=== PATIENT | female | born 1975 | race Caucasian/White ===

== ENCOUNTER 2016-09-03 13:28 | Emergency (ER) | payer SELFPAY ==
--- NOTE | 2016-09-05 14:27 | ER ---
ADMIT: 09/03/2016 RM/LOC: ER [facility] MR#: [id number] [facility] [address] [place] [id number] JOANN JEFFERSON [address] [place] [address] Emergency Room Report SEX: F AGE: 40 : 1975 DATE: 09/03/2016 Joann is a 40-year-old, cab-[id number]-upvtyoqt lady, who presents to the emergency room after being seen at [facility] for cough and found to have an elevated D-dimer. Joann's daughter is interpreting for her and states that Joann has had this horrible cough and dyspnea for the past year. She has been worked up by multiple doctors and found to have COPD. In May, she was found to have pneumonia and treated for that. Then, recently, she was found to have influenza. She reports a productive cough, where she is coughing up blood. She does report fever, chills, and body aches. She is currently rating her right and left chest pain at 8/10. She has not taken any ibuprofen or Tylenol for the pain. Her lungs were diminished, but coarse diffusely. CMP was done in the emergency room. Her potassium was slightly low at 3.4, her albumin was low at 3.4, alkaline phosphatase 194, AST was 73, and ALT was 81. Her influenza A and B were negative. CT of her chest was completed and showed no evidence of a DVT, but some inflammation that was likely consistent with bronchitis. The patient was told of the results. I discussed the case with Dr. Whitman. He suggested trying Zithromax for her. She was prescribed Zithromax 500 mg one daily for 3 days. She was given Toradol in the emergency room, which seemed to help quite a bit with her chest pain that she was having related to her cough. She responded well with this. I encouraged her to take 600 mg of ibuprofen three times a day for the next three days. Her daughter voiced understanding. She was encouraged to follow up with her primary care doctor next week. Karla Bey APRN / García Whitman MD / britt JOB #: [id number] CC: Albert Lund MD, Attending Physician
== END 2016-09-03 16:15 | disposition home or self-care (01) ==
LOC: ER 13:28
DX: J20.9 Acute bronchitis, unspecified (principal); Z79.899 Other long term (current) drug therapy